=== PATIENT | female | born 1955 | race Two or more races ===

== ENCOUNTER 2023-05-14 19:50 | Emergency (ER) | payer OTHER ==
[~2023-05-14] VITALS: Ht 165.1 cm; Wt 65.8 kg
[2023-05-14] MEDS ORDERED: ATACAND32 MG PO (20:09)
[2023-05-14] MEDS ORDERED: GLUMETZA1000 MG PO (20:10)
[2023-05-14] MEDS ORDERED: ADULT LOW DOSE81 M1 PO (20:10)
[2023-05-14] MEDS ORDERED: WELLBUTRIN XL300 MG PO (20:10)
[2023-05-14] MEDS ORDERED: NEURONTIN300 MG PO (20:10)
[2023-05-14] MEDS ORDERED: LIPITOR40 M1 (20:10)
[2023-05-14] MEDS ORDERED: PROTONIX40 MG PO (20:10)
[2023-05-14 21:43] LABS: HEMATOCRIT 41.1 % (36.0-45.00); HEMOGLOBIN 13.6 g/dL (12.0-15.00); MEAN CELL VOLUME 87.1 fL (80.00-100.00); MEAN CORPUSCULAR HEMOGLOBIN 28.9 pg (27.00-32.0); MEAN CORPUSCULAR HGB CONC 33.2 g/dl (32.0-36.0); PLATELET COUNT 205 K/uL (150-450); RED BLOOD COUNT 4.72 M/uL (4.00-6.00); RED CELL DISTRIBUTION WIDTH 13.9 % (11.5-14.5)
[2023-05-14 22:06] LABS: ALBUMIN 3.8 gm/dL (3.4-5.0); BILIRUBIN TOTAL 0.46 mg/dL (0.3-1.2); CALCIUM 9.6 mg/dL (8.5-10.1); CREATININE SERUM 1.2 mg/dL (0.55-1.02); GFR 44.54; GLOBULINA 4.2 G/DL (2.4-3.5); POTASSIUM 3.68 mEq/L (3.5-5.1)
[2023-05-14 22:15] LABS: URINE APPEARANCE Clear; URINE BILIRRUBIN Negative (NEGATIVE); URINE BLOOD Negative; URINE COLOR Yellow; URINE GLUCOSE Negative (NEGATIVE); URINE LEUKOCYTE Moderate; URINE NITRATE Negative; URINE PROTEIN Trace (NEGATIVE); URINE UROBILINOGEN 0.2 E.U./dl
[2023-05-14 22:19] LABS: URINE BACTERIA 1369.5 uL (0.0-1933); URINE EPITHELIAL CELLS 32.3 uL (0.0-38.8); URINE RBC 11.9 uL (0.0-20.8); URINE WBC 205.3 uL (0.0-23.2)
[2023-05-14 22:33] LABS: URINE YEAST FEW /hpf
[2023-05-15] MEDS ORDERED: OMEPRAZOLE40 MG PO (05:21)
[2023-05-15] MEDS ORDERED: AMOX-CLAV 875-1 EACH PO (05:21)
[2023-05-15] MEDS ORDERED: METRONIDAZOLE500 MG PO (05:21)
[2023-05-15] MEDS ORDERED: LEVSIN/SL0.125 MG SL (05:21)
== END 2023-05-15 06:48 | disposition home or self-care (01) ==
LOC: ER 19:50 → EDBD 19:50 → ER 21:27
PROVIDERS: Emergency Medicine
DX: R10.32 Left lower quadrant pain (principal); K57.32 Diverticulitis of large intestine without perforation or abscess without bleeding; Z91.013 Allergy to seafood; Z88.2 Allergy status to sulfonamides
CPT/HCPCS: 36415; 74177; 96365; 96366; 99284; J1885; J2543; J3490; J7030; Q9965